=== PATIENT | female | born 1990 | race Asian ===

== ENCOUNTER 2018-09-03 15:01 | Emergency (ER) | payer OTHER ==
[~2018-09-03] VITALS: Ht 157.5 cm; Wt 62.3 kg
[2018-09-03 17:36] VITALS: BP 129/70
== END 2018-09-03 17:39 | disposition home or self-care (01) ==
LOC: EMS 15:01
DX: M25.561 Pain in right knee (principal); R03.0 Elevated blood-pressure reading, without diagnosis of hypertension

== ENCOUNTER 2019-07-23 15:56 | Emergency (ER) | payer OTHER ==
[~2019-07-23] VITALS: Ht 165.1 cm; Wt 81.8 kg
[2019-07-23] MEDS: LIDOCAINE 5% TRANSDERMAL PATCH TD ONE (18:50)
[2019-07-23] MEDS: KETOROLAC TROMETHAMINE 60 MG/2 ML VIAL IM ONE (18:50)
[2019-07-23] MEDS: DIAZEPAM 5 MG TABLET PO ONE (18:50)
[2019-07-23] MEDS: OxyCODONE HCL/ACETAMINOPHEN 5-325 MG TABLET PO ONE (18:50)
[2019-07-23 20:17] VITALS: BP 123/80
== END 2019-07-23 20:35 | disposition home or self-care (01) ==
LOC: EMS 15:57
DX: M54.5 Low back pain (principal)
CPT/HCPCS: 72220; 81025; 96372; 99284; J1885

== ENCOUNTER 2020-09-29 14:40 | Emergency (ER) | payer OTHER ==
[~2020-09-29] VITALS: Ht 165.1 cm; Wt 77.3 kg
[2020-09-29 17:13] VITALS: BP 130/80
== END 2020-09-29 17:18 | disposition home or self-care (01) ==
LOC: EMS 14:40
DX: M25.561 Pain in right knee (principal)
CPT/HCPCS: Z7502

== ENCOUNTER 2021-09-18 01:31 | Emergency (ER) | payer OTHER ==
[~2021-09-18] VITALS: Ht 165.1 cm; Wt 77.3 kg
[2021-09-18 01:29] LABS: BASOPHILS % (AUTO) 0.5 % (0.0-2.0); EOSINOPHILS % (AUTO) 3.3 % (1.0-6.0); HEMATOCRIT 39.4 % (36-46); HEMOGLOBIN 13.1 g/dL (12.0-16.0); LYMPHOCYTES % (AUTO) 19.2 % (22.0-44.0); MEAN CORPUSCULAR HEMOGLOBIN 29.5 pg (26.0-34.0); MEAN CORPUSCULAR HGB CONC 33.2 G/dL (31.0-37.0); MEAN CORPUSCULAR VOLUME 89 fL (80-100); MONOCYTES # (AUTO) 0.5 K/uL (0.1-1.0); MONOCYTES % (AUTO) 4.7 % (2.0-9.0); NEUTROPHILS # (AUTO) 7.6 K/uL (1.8-7.7); NEUTROPHILS % (AUTO) 72.3 % (40.0-70.0); PLATELET COUNT (AUTO) 287 K/uL (150-450); RED BLOOD CELL COUNT(AUTO) 4.43 MIL/uL (4.00-5.20); RED CELL DISTRIBUTION WIDTH 13.3 % (11.5-14.5)
[~2021-09-18 01:31] MED LIST: FAMOTIDINE 10 MG/ML 2 ML VIAL IVP ONE; KETOROLAC TROMETHAMINE 30 MG/ML VIAL IVP ONE; MAG HYDROX/AL HYDROX/SIMETH 30 ML SUSP UDCUP PO ONE; ONDANSETRON HCL 4 MG/2 ML VIAL IVP ONE; SODIUM CHLORIDE 0.9% 1,000 ML IV ONE
[2021-09-18 01:35] LABS: ANION GAP 8 mmol/L (8-16); CARBON DIOXIDE 28 mmol/L (22-29); CHLORIDE 106 mmol/L (98-107); CREATININE 0.91 mg/dL (0.60-1.30); GLOMERULAR FILTR. RATE CALC > 60 mL/min (>60); GLUCOSE,RANDOM 132 mg/dL (70-110); POTASSIUM 4.5 mmol/L (3.5-5.1); SODIUM SERUM 142 mmol/L (136-145); UREA NITROGEN, BLOOD 13 mg/dL (7-18)
[2021-09-18 01:43] LABS: ALANINE AMINOTRANSFERASE 43 U/L (12-78); ALBUMIN 3.8 g/dL (3.4-5.0); ALKALINE PHOSPHATASE 59 U/L (46-116); ASPARTATE AMINOTRANSFERASE 60 U/L (15-37); BILIRUBIN,TOTAL 0.4 mg/dL (0.1-1.0); TOTAL PROTEIN, SERUM 7.9 g/dL (6.4-8.2)
[2021-09-18 01:44] LABS: LIPASE 210 U/L (73-393)
[2021-09-18 01:56] LABS: HCG,QUANTITATIVE < 1 mIU/mL (0-6)
[2021-09-18 07:00] VITALS: BP 124/69
== END 2021-09-18 07:19 | disposition home or self-care (01) ==
LOC: EMS 01:35
DX: R10.30 Lower abdominal pain, unspecified (principal); R19.7 Diarrhea, unspecified; R11.10 Vomiting, unspecified
CPT/HCPCS: 36415; 74177; 80053; 83690; 84702; 85025; 96361; 96374; 96375; 99285; J1885; J2405; J7030

== ENCOUNTER 2022-04-22 21:26 | Emergency (ER) | payer OTHER ==
[~2022-04-22] VITALS: Ht 170.2 cm; Wt 84.1 kg
[2022-04-22 22:29] LABS: BASOPHILS % (AUTO) 0.7 % (0.0-2.0); EOSINOPHILS % (AUTO) 5.2 % (1.0-6.0); HEMATOCRIT 41.4 % (36-46); HEMOGLOBIN 13.8 g/dL (12.0-16.0); LYMPHOCYTES # (AUTO) 2.1 K/uL (1.0-4.8); LYMPHOCYTES % (AUTO) 32.6 % (22.0-44.0); MEAN CORPUSCULAR HEMOGLOBIN 28.7 pg (26.0-34.0); MEAN CORPUSCULAR HGB CONC 33.4 G/dL (31.0-37.0); MEAN CORPUSCULAR VOLUME 86 fL (80-100); MONOCYTES # (AUTO) 0.3 K/uL (0.1-1.0); MONOCYTES % (AUTO) 5.1 % (2.0-9.0); NEUTROPHILS # (AUTO) 3.5 K/uL (1.8-7.7); NEUTROPHILS % (AUTO) 56.4 % (40.0-70.0); PLATELET COUNT (AUTO) 320 K/uL (150-450); RED BLOOD CELL COUNT(AUTO) 4.83 MIL/uL (4.00-5.20); RED CELL DISTRIBUTION WIDTH 13.3 % (11.5-14.5)
[2022-04-22 22:38] LABS: ANION GAP 10 mmol/L (8-16); CALCIUM, TOTAL 9.1 mg/dL (8.8-10.5); CARBON DIOXIDE 25 mmol/L (22-29); CHLORIDE 103 mmol/L (98-107); CREATININE 0.94 mg/dL (0.60-1.30); GLOMERULAR FILTR. RATE CALC > 60 mL/min (>60); GLUCOSE,RANDOM 109 mg/dL (70-110); POTASSIUM 3.5 mmol/L (3.5-5.1); SODIUM SERUM 138 mmol/L (136-145); UREA NITROGEN, BLOOD 11 mg/dL (7-18)
[2022-04-22 22:49] LABS: ALANINE AMINOTRANSFERASE 478 U/L (12-78); ALBUMIN 3.9 g/dL (3.4-5.0); ALKALINE PHOSPHATASE 93 U/L (46-116); ASPARTATE AMINOTRANSFERASE 332 U/L (15-37); BILIRUBIN,TOTAL 1.7 mg/dL (0.1-1.0); HCG,QUANTITATIVE < 1 mIU/mL (0-6); LIPASE 181 U/L (73-393); TOTAL PROTEIN, SERUM 8.2 g/dL (6.4-8.2)
[2022-04-22 22:57] LABS: APPEARANCE,URINE CLEAR (CLEAR); GLUCOSE, URINE (UA) NEGATIVE (NEGATIVE); LEUKOCYTE ESTERASE ,URINE NEGATIVE (NEGATIVE); NITRATE,URINE NEGATIVE (NEGATIVE); OCCULT BLOOD,URINE TRACE (NEGATIVE); PH,URINE 6.5 (5.0-8.0); PROTEIN,URINE 30-70 mg/dL (NEGATIVE)
[2022-04-22 23:04] LABS: BILIRUBIN,URINE SMALL (NEGATIVE)
[2022-04-22 23:24] LABS: BACTERIA,URINE None Seen /HPF (None Seen); MUCUS,URINE Few LPF (None Seen); RBC,URINE 0-2 /HPF (0-2); SQUAMOUS EPITHELIAL CELL,UR Moderate /LPF (None Seen); WBC,URINE 0-2 /HPF (0-5)
[2022-04-22 23:30] VITALS: BP 129/78
[2022-04-23] MEDS ORDERED: SODIUM CHLORIDE 0.9% 1,000 ML IV ONE (02:15)
== END 2022-04-23 04:56 | disposition left against medical advice (07) ==
LOC: EMS 21:30
DX: R10.31 Right lower quadrant pain (principal); K80.20 Calculus of gallbladder without cholecystitis without obstruction; Z87.39 Personal history of other diseases of the musculoskeletal system and connective tissue
CPT/HCPCS: 74022; 76830; 76856; 80053; 81001; 83690; 84702; 85025; 99285

== ENCOUNTER 2025-09-02 00:38 | Emergency (ER) | payer SELFPAY ==
[~2025-09-02] VITALS: Ht 165.1 cm; Wt 95.5 kg
[2025-09-02 00:44] VITALS: BP 151/67; PULSE 78; RESP 18; TEMP 98.2; O2SAT 97
[2025-09-02] MEDS: LIDOCAINE 5% TRANSDERMAL PATCH TD ONE (02:30)
[2025-09-02] MEDS: KETOROLAC TROMETHAMINE 30 MG/ML VIAL IM ONE (02:30)
[2025-09-02] MEDS ORDERED: CYCL-448 PO (03:21)
[2025-09-02] MEDS ORDERED: LIDO-57 TP (03:21)
== END 2025-09-02 03:48 | disposition home or self-care (01) ==
LOC: EMS 00:38
DX: R10.31 Right lower quadrant pain (principal)
CPT/HCPCS: 99283; 96372; J1885